=== PATIENT | female | born 1955 | race African-American/Black ===

== ENCOUNTER 2023-04-08 14:56 | Emergency (ER) | payer BC ==
[~2023-04-08] VITALS: Ht 165.1 cm; Wt 75.0 kg
[2023-04-08 15:08] VITALS: O2SAT 100
[2023-04-08] MEDS ORDERED: HYDROCODONE/ACETAMINOPHEN 5/325MG TABLET PO STA (15:33)
[2023-04-08] MEDS ORDERED: NAPR-681 MT (16:47)
[2023-04-08] MEDS ORDERED: HYDROCODONE/ACETAMINOPHEN 5/325MG TABLET PO NR (17:15)
[2023-04-08 20:02] VITALS: BP 148/68; PULSE 80; RESP 16; TEMP 98.6
== END 2023-04-08 20:03 | disposition home or self-care (01) ==
LOC: ER 16:22
DX: M79.672 Pain in left foot (principal); M25.572 Pain in left ankle and joints of left foot; W18.39XA Other fall on same level, initial encounter; Y93.89 Activity, other specified; Y92.89 Other specified places as the place of occurrence of the external cause; Y99.8 Other external cause status; I10 Essential (primary) hypertension
CPT/HCPCS: 73610; 73630; 99284